=== PATIENT | male | born 1950 | race Caucasian/White ===

== ENCOUNTER → 2019-03-25 | Outpatient (CLI) | payer MEDICARE ==
[~2019-03-25] MED LIST: ANAPROX DS550 MG PO; NKHM
== END | disposition home or self-care (01) ==
LOC: RAD 11:20
DX: R05 Cough (principal)

== ENCOUNTER → 2019-10-25 | Outpatient (CLI) | payer MEDICARE | END | disposition home or self-care (01) | LOC: US 11:18 | DX: R19.7 Diarrhea, unspecified (principal); R10.84 Generalized abdominal pain ==

== ENCOUNTER → 2019-12-02 | Outpatient (CLI) | payer MEDICARE | END | disposition home or self-care (01) | LOC: LAB 11:55 | PROVIDERS: ATTEND Physician Assistant | DX: K21.9 Gastro-esophageal reflux disease without esophagitis (principal) ==

== ENCOUNTER → 2019-12-03 | Outpatient (CLI) | payer MEDICARE ==
[~2019-12-03] MED LIST changes: +PROTONIX40 MG PO
== END | disposition home or self-care (01) ==
LOC: LAB 12-02
PROVIDERS: ATTEND Physician Assistant
DX: K21.9 Gastro-esophageal reflux disease without esophagitis (principal); R19.7 Diarrhea, unspecified; R10.84 Generalized abdominal pain

== ENCOUNTER → 2019-12-04 | Outpatient (CLI) | payer MEDICARE | END | disposition home or self-care (01) | LOC: COVID19 00:43 | PROVIDERS: ATTEND Surgery | DX: Z12.11 Encounter for screening for malignant neoplasm of colon (principal); Z11.59 Encounter for screening for other viral diseases ==

== ENCOUNTER → 2019-12-09 | Day surgery (SDC) | payer MEDICARE ==
[~2019-12-09] VITALS: Ht 177.8 cm; Wt 93.9 kg
[2019-12-09 09:20] VITALS: BP 168/85
[2019-12-09 11:36] VITALS: BP 125/53
[2019-12-09 11:51] VITALS: BP 101/64
[2019-12-09 12:06] VITALS: BP 107/76
== END | disposition home or self-care (01) ==
LOC: SDC 12-05 11:00
PROVIDERS: ATTEND Surgery
DX: Z12.11 Encounter for screening for malignant neoplasm of colon (principal); D12.4 Benign neoplasm of descending colon; K21.0 Gastro-esophageal reflux disease with esophagitis; K44.9 Diaphragmatic hernia without obstruction or gangrene; K57.30 Diverticulosis of large intestine without perforation or abscess without bleeding; K29.50 Unspecified chronic gastritis without bleeding; Z98.890 Other specified postprocedural states; Z79.899 Other long term (current) drug therapy

== ENCOUNTER 2023-04-19 13:29 | Emergency (ER) | payer MEDICARE ==
[~2023-04-19] VITALS: Ht 180.3 cm; Wt 95.3 kg
[2023-04-19 13:38] VITALS: BP 147/86
[2023-04-19 14:08] LABS: BASO % 0.4 % (0.0-1.0); EOS # 0.2 10*3/uL (0.0-0.4); EOS % 1.6 % (1.0-4.0); HEMATOCRIT 45.5 % (42.0-52.0); LYMPH # 1.6 10*3/uL (1.3-4.4); LYMPH % 15.7 % (27.0-41.0); MEAN CELL VOLUME 89.9 fl (80.0-94.0); MEAN CORPUSCULAR HGB 29.8 pg (27.0-31.0); MEAN CORPUSCULAR HGB CONC 33.2 g/dl (33.0-37.0); MEAN PLATELET VOLUME 10.4 fl (9.6-12.3); MONO # 1.1 10*3/uL (0.1-1.0); MONO % 10.7 % (3.0-9.0); NEUT # 7.1 10*3/uL (2.3-7.9); NEUT % 71.3 % (47.0-73.0); PLATELET COUNT AUTOMATED 221 10*3/uL (130-400); RED BLOOD COUNT 5.06 10*6/uL (4.50-5.90); WHITE BLOOD COUNT 9.9 10*3/uL (4.8-10.8)
[2023-04-19 14:11] LABS: BILIRUBIN 2+ (Negative); BLOOD Trace-Lysed (Negative); CLARITY Clear (Clear); COLOR Orange (Yellow); GLUCOSE Negative (Negative); KETONE Negative (Negative); LEUKO ESTERASE 1+ (Negative); NITRITE Positive (Negative); SPECIFIC GRAVITY 1.015 (1.001-1.030)
[2023-04-19 14:22] LABS: BACTERIA 1+; MUCOUS 1+
[2023-04-19 14:29] LABS: ALKALINE PHOSPHATASE 78 U/L (46-116); BUN 14 mg/dl (9-23); CHLORIDE 104 mmol/L (98-107); POTASSIUM 3.6 mmol/L (3.4-5.1); SGPT/ALT 13 U/L (5-49); TOTAL PROTEIN 7.9 gm/dL (6.0-8.0)
[2023-04-19] MEDS ORDERED: SEPTDS PO (14:41)
== END 2023-04-19 14:52 | disposition home or self-care (01) ==
LOC: ED 13:29
PROVIDERS: Physician Assistant Medical
DX: N39.0 Urinary tract infection, site not specified (principal)

== ENCOUNTER 2024-07-18 17:10 | Emergency (ER) | payer MEDICARE ==
[~2024-07-18] VITALS: Wt 95.3 kg
[~2024-07-18 17:10] MED LIST changes: +SEPTDS PO
[2024-07-18 17:27] VITALS: BP 163/82
[2024-07-18] MEDS ORDERED: Albuterol Sulf/Ipratropium 3 ML VIAL NEB ONE (17:35)
[2024-07-18] MEDS ORDERED: methylPREDNISolone sod succ 125 MG VIAL IM ONE (17:35)
[2024-07-18] MEDS ORDERED: Water, Sterile 10 ML VIAL ONE (18:06)
[2024-07-18 18:09] LABS: BASO % 0.2 % (0.0-1.0); RED CELL DISTRI WIDTH 13.7 % (0-14.5)
[2024-07-18 18:36] LABS: POTASSIUM 3.4 mmol/L (3.4-5.1); TOTAL PROTEIN 7.9 gm/dL (6.0-8.0)
[2024-07-18 18:54] LABS: EOS % 0.2 % (1.0-4.0); HEMATOCRIT 44.3 % (42.0-52.0); MEAN CELL VOLUME 88.1 fl (80.0-94.0); MEAN CORPUSCULAR HGB 30.4 pg (27.0-31.0); MEAN CORPUSCULAR HGB CONC 34.5 g/dl (33.0-37.0); MEAN PLATELET VOLUME 11.1 fl (9.6-12.3); MONO # 0.5 10*3/uL (0.1-1.0); NEUT # 4.1 10*3/uL (2.3-7.9); NEUT % 80.2 % (47.0-73.0); PLATELET COUNT AUTOMATED 111 10*3/uL (130-400); RED BLOOD COUNT 5.03 10*6/uL (4.50-5.90); WHITE BLOOD COUNT 5.1 10*3/uL (4.8-10.8)
[2024-07-18] MEDS ORDERED: ACETAMINOPHEN 325 MG TAB PO ONE (19:25)
[2024-07-18] MEDS ORDERED: AVPAK AZITHROM250 M1 PO (19:40)
[2024-07-18] MEDS ORDERED: AZITHROMYCIN 250 MG TAB PO ONE (19:40)
[2024-07-18] MEDS ORDERED: PREDNISONE50 MG PO (19:40)
== END 2024-07-18 19:49 | disposition home or self-care (01) ==
LOC: ED 17:10
PROVIDERS: Physician Assistant Medical
DX: J40 Bronchitis, not specified as acute or chronic (principal); Z79.899 Other long term (current) drug therapy

== ENCOUNTER 2024-07-28 16:49 | Emergency (ER) | payer MEDICARE, OTHER ==
[~2024-07-28] VITALS: Ht 154.9 cm; Wt 95.3 kg
[~2024-07-28 16:49] MED LIST changes: +AVPAK AZITHROM250 M1 PO; +PREDNISONE50 MG PO
[2024-07-28 17:01] VITALS: BP 133/71
[2024-07-28 17:32] LABS: BASO % 0.2 % (0.0-1.0); EOS # 0.1 10*3/uL (0.0-0.4); EOS % 0.9 % (1.0-4.0); HEMATOCRIT 42.2 % (42.0-52.0); MEAN CORPUSCULAR HGB CONC 33.6 g/dl (33.0-37.0); MEAN PLATELET VOLUME 9.9 fl (9.6-12.3); MONO # 1.3 10*3/uL (0.1-1.0); MONO % 10.3 % (3.0-9.0); NEUT # 8.7 10*3/uL (2.3-7.9); NEUT % 70.5 % (47.0-73.0); PLATELET COUNT AUTOMATED 246 10*3/uL (130-400); RED BLOOD COUNT 4.74 10*6/uL (4.50-5.90); RED CELL DISTRI WIDTH 13.8 % (0-14.5); WHITE BLOOD COUNT 12.3 10*3/uL (4.8-10.8)
[2024-07-28 17:52] LABS: BUN 20 mg/dl (9-23); CHLORIDE 100 mmol/L (98-107); POTASSIUM 3.7 mmol/L (3.4-5.1)
[2024-07-28] MEDS ORDERED: AMOX-CLAV 875-1 EACH PO (18:18)
[2024-07-28] MEDS ORDERED: PREDNISONE50 MG PO (18:18)
[2024-07-28] MEDS ORDERED: Amoxicillin/Clavulanate Pota 875 MG TAB PO ONE (18:20)
== END 2024-07-28 18:45 | disposition home or self-care (01) ==
LOC: ED 16:49
PROVIDERS: Internal Medicine
DX: J32.9 Chronic sinusitis, unspecified (principal); Z79.899 Other long term (current) drug therapy

== ENCOUNTER → 2024-09-11 | Outpatient (CLI) | payer MEDICARE, OTHER ==
[~2024-09-11] MED LIST changes: +AMOX-CLAV 875-1 EACH PO
== END | disposition home or self-care (01) ==
LOC: US 01:56
PROVIDERS: ATTEND Physician Assistant
DX: I08.8 Other rheumatic multiple valve diseases (principal); Z13.6 Encounter for screening for cardiovascular disorders; I71.40 Abdominal aortic aneurysm, without rupture, unspecified; I70.0 Atherosclerosis of aorta

== ENCOUNTER → 2025-02-13 | Outpatient (CLI) | payer MEDICARE, OTHER ==
[~2025-02-13] MED LIST changes: +ELIQUIS5 M1 PO; +METOPROLOL TART50 M1 PO; +Regadenoson 0.4 MG/5 ML SYR IV ONE; +Technetium Tc 99M Tetrofosmi 0.23 MG KIT IJ SCH; +VIBRA-TAB100 MG PO
== END | disposition home or self-care (01) ==
LOC: CARD 03:48
PROVIDERS: ATTEND Nurse Practitioner Family
DX: I48.91 Unspecified atrial fibrillation (principal); R94.31 Abnormal electrocardiogram [ECG] [EKG]